=== PATIENT | female | born 1965 | race Caucasian/White ===

== ENCOUNTER 2016-06-21 20:28 | Emergency (ER) | payer MEDICAID ==
[~2016-06-21] VITALS: Ht 170.2 cm; Wt 68.4 kg
[2016-06-21] MEDS ORDERED: TRAM50TA2 PO (20:59)
[2016-06-21] MEDS ORDERED: PLEASE ENTER ALLERGIES MC SCH ×2 (21:00)
[2016-06-21] MEDS ORDERED: IBUPROFEN 200 MG TABLET PO ONE (21:00)
[2016-06-21] MEDS ORDERED: PLEASE ENTER HEIGHT AND WEIGHT MC SCH (21:00)
[2016-06-21] MEDS ORDERED: IBUPROFEN 200 MG TABLET ONE (21:13)
[2016-06-21 22:09] VITALS: BP 95/63
== END 2016-06-21 22:11 | disposition home or self-care (01) ==
LOC: ED 22:05
DX: S16.1XXA Strain of muscle, fascia and tendon at neck level, initial encounter (principal); S80.02XA Contusion of left knee, initial encounter; S29.012A Strain of muscle and tendon of back wall of thorax, initial encounter; W01.0XXA Fall on same level from slipping, tripping and stumbling without subsequent striking against object, initial encounter; Y93.89 Activity, other specified; Y92.89 Other specified places as the place of occurrence of the external cause; Y99.8 Other external cause status
CPT/HCPCS: 99284